=== PATIENT | female | born 1985 | race Caucasian/White ===

== ENCOUNTER 2020-10-15 07:30 | Inpatient (IN) | payer OTHER ==
[~2020-10-15] VITALS: Ht 167.6 cm; Wt 93.0 kg
[2020-10-16 06:02] LABS: HEMOGLOBIN 13.2 gm/dl (12.3-15.3); RED BLOOD COUNT 4.24 M/UL (4.00-5.10); WHITE BLOOD COUNT 6.9 K/UL (4.5-11.0)
[2020-10-17] MEDS ORDERED: IBU600 MG PO (13:12)
== END 2020-10-16 12:16 | disposition home or self-care (01) | DRG 395 ==
LOC: MED SURG 4 07:30
PROVIDERS: ADMIT Surgery
DX: K43.6 Other and unspecified ventral hernia with obstruction, without gangrene (principal); Z20.822 Contact with and (suspected) exposure to COVID-19; Z90.49 Acquired absence of other specified parts of digestive tract; Z98.890 Other specified postprocedural states
CPT/HCPCS: 36415; 85025; J1170; J2405; J3480

== ENCOUNTER 2020-10-17 10:08 | Inpatient (IN) | payer OTHER ==
[~2020-10-17] VITALS: Ht 170.2 cm; Wt 90.7 kg
[2020-10-17 11:21] LABS: HEMOGLOBIN 14.3 gm/dl (12.3-15.3); RED BLOOD COUNT 4.5 M/UL (4.00-5.10); WHITE BLOOD COUNT 8.6 K/UL (4.5-11.0)
[2020-10-17 11:53] LABS: BUN/CREATININE RATIO 15 (0-10)
[2020-10-17] MEDS ORDERED: IBU600 MG PO (13:12)
[2020-10-21] MEDS ORDERED: PERCOCET 5/325 T1 EA PO (10:24)
== END 2020-10-21 13:01 | disposition home or self-care (01) | DRG 355 ==
LOC: ER1 10:08 → CDU 12:00 → M/S 20:19
PROVIDERS: Emergency Medicine; ADMIT Surgery
PROC: 0WPF0JZ Removal of Synthetic Substitute from Abdominal Wall, Open Approach (ICD-10-PCS; 2020-10-17)
PROC: 0WUF0JZ Supplement Abdominal Wall with Synthetic Substitute, Open Approach (ICD-10-PCS; principal; 2020-10-17 14:33)
DX: K43.6 Other and unspecified ventral hernia with obstruction, without gangrene (principal); E66.01 Morbid (severe) obesity due to excess calories; Z20.822 Contact with and (suspected) exposure to COVID-19; F17.210 Nicotine dependence, cigarettes, uncomplicated; Z90.49 Acquired absence of other specified parts of digestive tract; Z68.31 Body mass index [BMI] 31.0-31.9, adult
CPT/HCPCS: 36415; 74018; 80053; 81001; 83690; 84703; 85025; 87070; 96374; 96375; 97116-GP-CQ; 97161; 99285; C1781; J0690; J1100; J1170; J1885; J2001; J2250; J2270; J2405; J2704; J2710; J3010; J3480; J7120; U0002